=== PATIENT | male | born 1950 | race Caucasian/White ===

== ENCOUNTER 2017-05-17 04:45 | Emergency (ER) | payer MEDICARE, OTHER ==
[~2017-05-17] VITALS: Ht 175.3 cm; Wt 91.6 kg
[~2017-05-17 04:45] MED LIST: ASPI325T PO; DIPH50IN2 IV; EPIN1INJ20 SQ/IV; HYDR-3533 PO; HYDR250P IVP; LANO0.2510 PO; LISI-591 PO; LORT5TAB PO; PROS5TAB2 PO; SOTA80TA PO; ZOLO50TA PO; [UNRECOGNIZED DRUG - CODE] IV
[2017-05-17 04:51] VITALS: BP 180/81; PULSE 83; RESP 18; TEMP 98.1; O2SAT 96
--- NOTE | 2017-05-17 05:18 | PD ---
HPI Chief Complaint: Complaint Time Seen by Provider: 05:11 Travel History International Travel<30 days: No Contact w/Intl Traveler<30days: No Traveled to known affect area: No History of Present Illness HPI The patient is a 67-year-old male with a history of enlarged prostate who complains of inability to urinate and suprapubic discomfort for about 3 hours. He has had a prosthetic obstruction about [address] Singh is his urologist and he plans to see him next week. [facility] Past Medical History Arthritis: Yes (generalized) Atrial Fibrillation: Yes Autoimmune Disease: No Heart Rhythm Problems: Yes (history of a. 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) Hepatitis: No Hiatal Hernia: No Hypertension: Yes Immune Disorder: No Kidney Stones: No Musculoskeletal: Yes Neurologic: No Psychiatric: No Reproductive: No Respiratory: No Renal Failure: No Thyroid Disease: No Past Surgical History Abdominal Surgery: No AICD: No Cardiac Surgery: No Ear Surgery: No Endocrine Surgery: No Eye Surgery: No Genitourinary Surgery: No Gynecologic Surgery: No Joint Replacement: No Oral Surgery: No Pacemaker: No Thoracic Surgery: No Social History Alcohol Use: Yes (occ) Tobacco Use: No Substance Use: No Allergies-Medications (Allergen,Severity, Reaction): Coded Allergies: HMG-CoA Reductase Inhibitors (Verified Adverse Reaction, Severe, Cramping , 05/17/17) severe leg cramps Reported Meds & Prescriptions Reported Meds & Active Scripts Active Reported Sotalol (Sotalol HCl) 80 Mg Tab 80 Mg PO DAILY Digoxin 0.25 Mg Tab 0.25 Mg PO DAILY Sertraline (Sertraline HCl) 50 Mg Tab 50 Mg PO DAILY Lisinopril 20 Mg Tab 20 Mg PO DAILY Finasteride 5 Mg Tab 5 Mg PO DAILY Do not crush. Review of Systems Except as stated in HPI: all other systems reviewed are Neg Physical Exam Narrative GENERAL: The patient is alert, oriented 3 in moderate to severe distress with his suprapubic bladder distention sensation. The vital signs show blood pressure 180/81 but are otherwise normal. SKIN: Focused skin assessment warm/dry. HEAD: Atraumatic. Normocephalic. EYES: Pupils equal and round. No scleral icterus. No injection or drainage. ENT: No nasal bleeding or discharge. Mucous membranes pink and moist. NECK: Trachea midline. No JVD. CARDIOVASCULAR: Regular rate and rhythm. No murmur appreciated. RESPIRATORY: No accessory muscle use. Clear to auscultation. Breath sounds equal bilaterally. GASTROINTESTINAL: Abdomen soft, non-tender, nondistended. Hepatic and splenic margins not palpable. The bladder appears markedly distended. MUSCULOSKELETAL: No obvious deformities. No clubbing. No cyanosis. No edema. NEUROLOGICAL: Awake and alert. No obvious cranial nerve deficits. Motor grossly within normal limits. Normal speech. PSYCHIATRIC: Appropriate mood and affect; insight and judgment normal. Data Data Last Documented VS Vital Signs Date Time Temp Pulse Resp B/P Pulse Ox O2 Delivery O2 Flow Rate FiO2 05/17/17 05:30 78 16 139/67 99 Room Air 05/17/17 04:51 98.1 Orders Urinalysis - C+S If Indicated (05/17/17 05:18) Urinary Catheter Insert/Apply (05/17/17 05:24) Labs Laboratory Tests Test 05/17/17 05:20 Urine Color STRAW Urine Turbidity CLEAR Urine pH 5.5 Urine Specific [place] 1.004 Urine Protein NEG mg/dL Urine Glucose (UA) NEG mg/dL Urine Ketones NEG mg/dL Urine Occult Blood LARGE Urine Nitrite NEG Urine Bilirubin NEG Urine Leukocyte Esterase NEG Urine RBC 4-9 /hpf Urine WBC 0-2 /hpf Urine Squamous Epithelial 0-5 /hpf Cells Urine Bacteria NONE /hpf Microscopic Urinalysis Comment CULT NOT INDICATED MDM Medical Decision Making Medical Screen Exam Complete: Yes Emergency Medical Condition: Yes Medical Record Reviewed: Yes Interpretation(s) The urine shows large occult blood with 4-9 red cells but is otherwise normal and culture is not indicated. The specific gravity 1.004. Differential Diagnosis Prostatic urethral obstruction, bladder diverticulumhighly unlikely Narrative Course The patient has prostatic urethral obstruction. Approximately 1500 cc was recovered after the Brantley was put in. The patient got considerable relief after the Brantley was put in. Diagnosis Primary Impression: Urethral obstruction Additional Impression: Bladder distention Additional Instructions: As you intend to do, follow-up with Dr. bajwa next week, he will remove the catheter. Disposition: DISCHARGE HOME Condition: Stable Ck Umanzor MD May 17, 2017 05:18
[2017-05-17] MEDS ORDERED: SERT-132 PO (05:19)
[2017-05-17] MEDS ORDERED: DIGO0.25 PO (05:19)
[2017-05-17] MEDS ORDERED: SOTA80TA PO (05:19)
[2017-05-17] MEDS ORDERED: LISI-515 PO (05:19)
[2017-05-17] MEDS ORDERED: FINA5TAB2 PO (05:19)
[2017-05-17 05:30] VITALS: BP 139/67; PULSE 78; RESP 16; O2SAT 99
[2017-05-17 05:32] LABS: BLOOD, URINE LARGE (NEG); GLUCOSE,URINE NEG (NEG); KETONE, URINE NEG (NEG); NITRITE,URINE NEG (NEG); PH, URINE 5.5 (5.0-8.5)
[2017-05-17 05:35] LABS: URINE COLOR STRAW (YELLW/STRAW)
[2017-05-17 05:36] LABS: COMMENT (UR) CULT NOT INDICATED; CULTURE IF INDICATED CULT NOT INDICATED; SQUAMOUS EPITHELIAL CELL URINE 0-5 /hpf (0-5); WBC, URINE 0-2 /hpf (0-5)
[2017-05-17 06:14] VITALS: BP 141/72
== END 2017-05-17 06:16 | disposition home or self-care (01) ==
LOC: PHED 04:45
DX: N36.8 Other specified disorders of urethra (principal); N32.89 Other specified disorders of bladder; I10 Essential (primary) hypertension; E11.9 Type 2 diabetes mellitus without complications; H91.93 Unspecified hearing loss, bilateral; Z87.438 Personal history of other diseases of male genital organs; Z87.448 Personal history of other diseases of urinary system; Z87.39 Personal history of other diseases of the musculoskeletal system and connective tissue; Z86.79 Personal history of other diseases of the circulatory system
CPT/HCPCS: 51703; 81001

== ENCOUNTER 2017-07-24 10:24 | Observation (INO) | payer MEDICARE ==
[~2017-07-24] VITALS: Ht 175.3 cm; Wt 93.6 kg
[~2017-07-24 10:24] MED LIST changes: -ASPI325T PO; +DIGO0.25 PO; -DIPH50IN2 IV; -EPIN1INJ20 SQ/IV; +FINA5TAB2 PO; -HYDR-3533 PO; -HYDR250P IVP; -LANO0.2510 PO; +LISI-515 PO; -LISI-591 PO; -LORT5TAB PO; -PROS5TAB2 PO; +SERT-132 PO; -ZOLO50TA PO; -[UNRECOGNIZED DRUG - CODE] IV
[2017-07-24] MEDS ORDERED: ASPI81CH CHEW (11:43)
[2017-07-24] MEDS ORDERED: ePHEDrine/NS 25 MG/5 ML SYR IV ONE (12:00)
[2017-07-24] MEDS ORDERED: ROCURONIUM INJ 50 MG/5 ML SYRINGE IV PUSH ONE (12:00)
[2017-07-24] MEDS ORDERED: INSULIN HUMAN REGULAR 1,000 UNITS/10 ML VIAL SQ PRN (12:00)
[2017-07-24] MEDS ORDERED: PROPOFOL 200 MG/20 ML AMP IV ONE (12:00)
[2017-07-24] MEDS ORDERED: GLYCOPYRROLATE 1 MG/5 ML SYRINGE IV PUSH ONE (12:00)
[2017-07-24] MEDS ORDERED: POVIDONE IODINE 5% (ANTISEPSIS KIT) 4 APPLICATIONS EACH NARE PRN (12:00)
[2017-07-24] MEDS ORDERED: LACTATED RINGER'S 1000 ML IV PRN (12:00)
[2017-07-24] MEDS ORDERED: DEXAMETHASONE SOD PHOS 4 MG/ML VIAL IV ONE (12:00)
[2017-07-24] MEDS ORDERED: ceFAZolin 1 GM ADDVANTAGE VIAL IV ONE (12:00)
[2017-07-24] MEDS ORDERED: MIDAZOLAM HCL 2 MG/2 ML VIAL IV ONE (12:00)
[2017-07-24] MEDS ORDERED: SODIUM CHLORID 0.9% 500 ML IV PRN (12:00)
[2017-07-24] MEDS ORDERED: NEOSTIGMINE 3 MG/3 ML SYR IV ONE (12:00)
[2017-07-24] MEDS ORDERED: LIDOCAINE HCL 1% PF 5 ML AMPULE OTHER ONE (12:00)
[2017-07-24] MEDS ORDERED: METOPROLOL TARTRATE 25 MG TAB PO PRN (12:00)
[2017-07-24] MEDS ORDERED: ONDANSETRON HCL 4 MG/2 ML VIAL IV PUSH ONE (12:00)
[2017-07-24] MEDS ORDERED: PHENYLEPH/NS 1000 MCG/10 ML SYR IV ONE (12:00)
[2017-07-24] MEDS ORDERED: ceFAZolin 2 GM PREMIX 50 ML IV SCH (12:00)
[2017-07-24] MEDS ORDERED: LACTATED RINGER'S 1000 ML INJ 1,000 ML IV ONE (12:00)
[2017-07-24] MEDS ORDERED: CHLORHEXIDINE GLUCONATE 2 % 1 PACK (2 CLOTHS) TOPICAL PRN (12:00)
[2017-07-24 12:10] LABS: PROTHROMBIN TIME - PATIENT 11.2 SEC (9.8-11.6)
[2017-07-24] MEDS ORDERED: ACETAMINOPHEN 1000 MG/100 ML 100 ML IV ONE (12:59)
[2017-07-24] MEDS ORDERED: FAMOTIDINE 20 MG/2 ML VIAL ONE (13:16)
[2017-07-24] MEDS ORDERED: STERILE WATER FOR INJECTION 20 ML VIAL ONE (13:28)
--- NOTE | 2017-07-24 13:57 | EKG ---
Date Performed: 07/24/2017 Time Performed: 11:09:52 PTAGE: 67 years EKG: ATRIAL FIBRILLATION MARKED LEFT AXIS DEVIATION MINIMAL VOLTAGE CRITERIA FOR LVH, CONSIDER N ORMAL VARIANT SEPTAL MYOCARDIAL INFARCTION , OF INDETERMINATE AGE ABNORMAL ECG PREVIOUS TRACING : 11/24/2015 18.12 Since previous tracing, atrial fibrillation has replaced Si nus rhythm . DOCTOR: Khris Patel Interpretating Date/Time 07/24/2017 13:55:54
[2017-07-24] MEDS ORDERED: ceFAZolin INJ 1,000 MG VIAL IV ONE (14:07)
[2017-07-24] MEDS ORDERED: DO NOT ADM ANY ANTICOAGULANT DRUGS PRN (15:40)
[2017-07-24] MEDS ORDERED: *MEPERIDINE 25 MG INJ VIAL PERIprocedural Use ONLY ONE (16:09)
[2017-07-24] MEDS ORDERED: ACETAMINOPHEN/HYDROcodone 325 MG/5 MG TAB PO PRN (17:15)
[2017-07-24 19:30] VITALS: BP 95/81; PULSE 104; RESP 17; TEMP 96.2; O2SAT 98
[2017-07-24] MEDS: DOCUSATE SODIUM 100 MG CAP PO SCH (22:07)
[2017-07-25 00:15] VITALS: BP 152/69; PULSE 109; RESP 17; TEMP 97.9; O2SAT 95
[2017-07-25 04:20] VITALS: BP 93/53; PULSE 96; RESP 16; TEMP 97; O2SAT 99
[2017-07-25 08:00] VITALS: BP 111/70; PULSE 109; RESP 18; TEMP 96.9; O2SAT 98
[2017-07-25] MEDS ORDERED: FINASTERIDE 5 MG TAB PO SCH (09:00)
[2017-07-25] MEDS ORDERED: SOTALOL HCL 80 MG TAB PO SCH (09:00)
[2017-07-25] MEDS ORDERED: DIGOXIN 0.25 MG TAB PO SCH (09:00)
[2017-07-25] MEDS ORDERED: LISINOPRIL 20 MG TAB PO SCH (09:00)
[2017-07-25 10:17] VITALS: O2SAT 94
[2017-07-25] MEDS: DOCUSATE SODIUM 100 MG CAP PO SCH (11:06)
[2017-07-25 12:00] VITALS: BP 106/66; PULSE 99; RESP 18; TEMP 98.3; O2SAT 98
[2017-07-25] MEDS ORDERED: DOCU1CAP39 PO (13:16)
[2017-07-25] MEDS ORDERED: HYDR-3516 PO (13:16)
[2017-07-25] MEDS ORDERED: CIPR-9 PO (13:16)
--- NOTE | 2017-07-28 12:50 | HHI.DS ---
Discharge Summary Admission Date Jul 24, 2017 at 18:31 Discharge Date: Jul 25, 2017 Admitting Diagnosis BPH Procedures Greenlight PVP with Moxy fiber Hospital Course 67 yo male underwent a Greenlight TURP on 07/25/2017 due to BPH. He was admitted overnight for observation due to his cardiac history. His urine cleared up overnight while on CBI. On POD#1, he passed his void trial. He was discharged home. Pt Condition on Discharge: Good Discharge Disposition: Discharge Home Discharge Instructions DIET: Follow Instructions for: As Tolerated, No Restrictions Activities you can perform: See Additionl Instruction Additional Activity Instructio: No heavylifting greater than 15 lbs x 4 weeks No strenuous activity x 3 weeks New Medications: Ciprofloxacin (Cipro) 500 Mg Tab 500 MG PO BID for Infection for 7 Days, #14 TAB 0 Refills Docusate Sodium (Dok) 100 Mg Cap 100 MG PO BID for Constipation for 14 Days, #28 CAP Hydrocodone-Acetaminophen (Hydrocodone-Acetaminophen) 5-325 mg Tab 2 TAB PO Q6H PRN for PAIN SCALE 6 TO 10 for 5 Days, #40 TAB Continued Medications: Aspirin (Aspirin) 81 Mg Chew 81 MG CHEW DAILY, TAB 0 Refills Digoxin (Digoxin) 0.25 Mg Tab 0.25 MG PO DAILY for Regulate Heart Beat, #30 TAB 0 Refills Finasteride (Finasteride) 5 Mg Tab 5 MG PO DAILY for Manage Prostate Problems, #30 TAB 0 Refills Do not crush. Lisinopril (Lisinopril) 20 Mg Tab 20 MG PO DAILY, #30 TAB 0 Refills Sotalol (Sotalol) 80 Mg Tab 80 MG PO DAILY for Regulate Heart Beat, #30 TAB 0 Refills Ashok Turner MD Jul 28, 2017 12:50
--- NOTE | 2017-07-28 13:34 | MP ---
cc: LORRI WHITE MD DATE OF SURGERY 07/24/2017 PREOPERATIVE DIAGNOSIS BPH with lower urinary tract symptoms. POSTOPERATIVE DIAGNOSIS BPH with lower urinary tract symptoms. PROCEDURE PERFORMED 1. Cystoscopy 2. GreenLight PVP with MoXy Fiber. SURGEON MD Yue ANESTHESIA General. COMPLICATIONS None. PREOPERATIVE ANTIBIOTICS Ancef 1 gram IV. DRAINS 22-Comoran three-way Brantley catheter. SPECIMEN None. BLOOD LOSS Minimal. DISPOSITION Stable to Recovery. INDICATIONS The patient is a 67-year-old male with a longstanding history of lower urinary tract symptoms including weak stream, incomplete emptying, nocturia secondary to enlarged prostate, presents today for cystoscopy and photovaporization of his prostate with the GreenLight laser. He has had multiple episodes of undergoing urinary retention. The patient had an office cystoscopy performed which showed an approximately 5-cm long prostate with trilobar hyperplasia. Treatment options were discussed with the patient. He wished to proceed with GreenLight photovaporization of the prostate. After the risks, benefits and alternatives were explained to the patient including the risk of erectile dysfunction, urinary incontinence and retrograde ejaculation, he elected to proceed and informed consent was obtained. DETAILS OF PROCEDURE The patient was properly identified, brought back to the Cystoscopy Suite. He was laid supine on the cystoscopy table. Appropriate time-out was performed under the direction of Anesthesiology. The patient was then induced under general aesthetic. Preop antibiotics in the form of Ancef 1 gram IV was given within 1 hour of the start of the procedure. The patient was then placed in dorsal lithotomy position, prepped and draped in normal sterile surgical fashion. The resectoscope with the visual obturator was carefully passed into the patient's bladder without any difficulty. The bladder was then drained. The working sheath was then inserted. The bladder was carefully inspected. Both ureteral orifices were identified and appeared in the normal anatomic location. There was no evidence of any bladder tumors or stones but it widely, diffusely trabeculated. The resectoscope was then retracted back into the prostatic fossa. I began by taking down the median lobe to the level of the bladder neck. This helped opened up his prostatic channel. I then vaporized the adenoma between the 1 and 5 and 7 and 11 o'clock position on each side all the way back to his verumontanum. He had a significantly long prostate but it did appear to open up his prostate quite significantly. Hemostasis was achieved. At this point his prostate appeared to be adequately opened with most if not all of the adenoma vaporized. The bladder was then drained. A second look was performed. Hemostasis was achieved. A 22-Comoran three-way catheter was then placed with clear yellow return. He was then started on CBI and placed to traction. This concluded the procedure. The patient was extubated and sent to recovery in stable condition. He will be admitted overnight for routine postoperative care. ADDENDUM Due to his cardiac history, the patient will be admitted overnight for observation. MD TONY Morales/STEPHANIE /12:46 PM /1:19 PM
== END 2017-07-25 16:13 | disposition home or self-care (01) ==
LOC: HSDC 10:24 → N06A 18:31
PROVIDERS: ADMIT Urology; ATTEND Urology
DX: N40.1 Benign prostatic hyperplasia with lower urinary tract symptoms (principal); R33.9 Retention of urine, unspecified; R35.1 Nocturia; R39.12 Poor urinary stream; I48.91 Unspecified atrial fibrillation
CPT/HCPCS: 00914; 52648; 85610; 93005; G0378; J0131; J0690; J1100; J2175; J2250; J2370; J2405; J2710; J3010; J7120

== ENCOUNTER 2017-10-07 07:29 | Emergency (ER) | payer MEDICARE ==
[~2017-10-07] VITALS: Ht 175.3 cm; Wt 93.2 kg
[~2017-10-07 07:29] MED LIST changes: +ASPI-516 CHEW; +CIPR-9 PO; +DOCU1CAP39 PO; +HYDR-3516 PO; -SERT-132 PO
[2017-10-07 07:38] VITALS: BP 201/108; PULSE 128; RESP 18; TEMP 97.6; O2SAT 100
--- NOTE | 2017-10-07 08:13 | PD ---
HPI Chief Complaint: Complaint Time Seen by Provider: 07:44 Travel History International Travel<30 days: No Contact w/Intl Traveler<30days: No History of Present Illness HPI 67-year-old male presents with no urination since 1 AM. He denies any other complaints other than pain and pressure from not urinating. He states he's had this issue before knows he has a large prostate. About 8 weeks or so ago he had laser surgery on his prostate with Dr. rea. He states that is his urologist. PFSH Past Medical History Arthritis: Yes Atrial Fibrillation: Yes Autoimmune Disease: No Heart Rhythm Problems: Yes (history of a. fib 2000) Cancer: No Cardiovascular Problems: Yes (A-FIB) High Cholesterol: No Chest Pain: No Congestive Heart Failure: No Diabetes: Yes (BORDERLINE-NOT ON MEDS) Diminished Hearing: Yes (BILATERAL) Endocrine: No Gastrointestinal Disorders: No Genitourinary: Yes (CYST ON RIGHT KIDNEY) Hepatitis: No Hiatal Hernia: No Hypertension: Yes Immune Disorder: No Implanted Vascular Access Dvce: No Kidney Stones: No Musculoskeletal: Yes Neurologic: No Psychiatric: No Reproductive: No Respiratory: No Renal Failure: No Thyroid Disease: No Past Surgical History Abdominal Surgery: No AICD: No Cardiac Surgery: No Ear Surgery: No Endocrine Surgery: No Eye Surgery: Yes (LEFT CATARACT REMOVED) Genitourinary Surgery: Yes (NEEDLE BX OF CYST ON RIGHT KIDNEY & PROSTATE) Gynecologic Surgery: No Joint Replacement: No Neurologic Surgery: No Oral Surgery: No Pacemaker: No Thoracic Surgery: No Other Surgery: Yes (needle biopsy) Social History Alcohol Use: Yes (occ) Tobacco Use: No Substance Use: No Allergies-Medications (Allergen,Severity, Reaction): Coded Allergies: amlodipine (Unverified Adverse Reaction, Severe, Cramping, 10/07/17) severe leg cramps atorvastatin (Unverified Adverse Reaction, Severe, Cramping, 10/07/17) severe leg cramps pravastatin (Unverified Adverse Reaction, Severe, Cramping, 10/07/17) severe leg cramps simvastatin (Unverified Adverse Reaction, Severe, Cramping, 10/07/17) severe leg cramps Reported Meds & Prescriptions Reported Meds & Active Scripts Active Macrobid (Nitrofurantoin Monohydrate Macrocrystals) 100 Mg Capsule 100 Mg PO BID 7 Days Hydrocodone-Acetaminophen 5-325 mg Tab 2 Tab PO Q6H PRN 5 Days Reported Lisinopril 20 Mg Tab 20 Mg PO BID Aspirin 81 Mg Chew 81 Mg CHEW DAILY Sotalol (Sotalol HCl) 80 Mg Tab 80 Mg PO DAILY Digoxin 0.25 Mg Tab 0.25 Mg PO DAILY Review of Systems Except as stated in HPI: all other systems reviewed are Neg Physical Exam Narrative GENERAL: Well-nourished, well-developed patient. 1000 cc of urine noted in catheter bag SKIN: Warm and dry. HEAD: Normocephalic and atraumatic. EYES: No injection or drainage. ENT: No nasal drainage noted. NECK: Supple, trachea midline. CARDIOVASCULAR: Regular rate and rhythm RESPIRATORY: No increased effort. No accessory muscle use. GASTROINTESTINAL: Abdomen soft, non-tender, nondistended after Briscoe placement EXTREMITIES: No edema.y. NEUROLOGICAL: Awake and alert. Moves extremities and sensory grossly within normal limits. Normal speech. Data Data Last Documented VS Vital Signs Date Time Temp Pulse Resp B/P (MAP) Pulse Ox O2 Delivery O2 Flow Rate FiO2 10/07/17 09:40 85 16 136/87 (103) 100 Room Air 10/07/17 07:38 97.6 Orders Orders Urinary Catheter Insert/Apply (10/07/17 07:44) Urinalysis - C+S If Indicated (10/07/17 08:07) Urine Culture (10/07/17 08:00) Ed Discharge Order (10/07/17 08:53) Labs Laboratory Tests Test 10/07/17 08:00 Urine Collection Type CATH Urine Color YELLOW Urine Turbidity SLIGHT Urine pH 7.0 Urine Specific [place] 1.009 Urine Protein 100 mg/dL Urine Glucose (UA) NEG mg/dL Urine Ketones NEG mg/dL Urine Occult Blood LARGE Urine Nitrite POS Urine Bilirubin NEG Urine Leukocyte Esterase LARGE Urine RBC 25-49 /hpf Urine WBC 100-200 /hpf Urine WBC Clumps MOD Urine Bacteria FEW /hpf Microscopic Urinalysis Comment CULTURE INDICATED Urine Collection Time 08:00 [facility] Medical Decision Making Medical Screen Exam Complete: Yes Emergency Medical Condition: Yes Medical Record Reviewed: Yes (past history confirmed) Interpretation(s) ua with uti Differential Diagnosis BPH, UTI, stone Narrative Course Briscoe catheter was placed with large amount of urine output. We'll send urinalysis and reevaluate ua with uti, will discuss with his urologist Patient denies any new complaints and states that they are feeling better. Patient happy with care, all questions answered. Patient knows that follow up is incumbent on them and to return to the emergency room immediately if new or worsening symptoms develop. Patient given strict return precautions, vitals reviewed and are normal after briscoe placement, agrees to further workup as an outpatient. Physician Communication Physician Communication dr rea states to have wait at least 1 week with briscoe for follow up, no preference on antibiotics Diagnosis Primary Impression: Urinary retention Additional Impression: UTI (urinary tract infection) Qualified Codes: N39.0 - Urinary tract infection, site not specified Patient Instructions: General Instructions Additional Instructions: return as needed, follow with dr rea in one week, keep briscoe in place until follow up Med/Other Pt SpecificInfo: Prescription(s) given Scripts Nitrofurantoin Monohydrate Macrocrystals (Macrobid) 100 Mg Capsule 100 MG PO BID for Infection for 7 Days, #14 CAP 0 Refills Prov: Aysha Ramey MD 10/07/17 Disposition: 01 DISCHARGE HOME Condition: Stable Aysha Ramey MD Oct 07, 2017 08:13
[2017-10-07 08:22] LABS: BILIRUBIN, URINE NEG (NEG); BLOOD, URINE LARGE (NEG); GLUCOSE,URINE NEG (NEG); KETONE, URINE NEG (NEG); NITRITE,URINE POS (NEG); URINE LEUKOCYTE ESTERASE LARGE (NEG)
[2017-10-07 08:33] LABS: URINE COLOR YELLOW (YELLW/STRAW); WBC, URINE 100-200 /hpf (0-5); WHITE BLOOD CELL CLUMPS MOD
[2017-10-07 08:34] LABS: BACTERIA, URINE FEW /hpf
[2017-10-07] MEDS ORDERED: MACR100C2 PO (08:53)
[2017-10-07] MEDS ORDERED: LISI-515 PO (09:23)
[2017-10-07 09:40] VITALS: BP 136/87; PULSE 85; RESP 16; O2SAT 100
== END 2017-10-07 10:04 | disposition home or self-care (01) ==
LOC: PHED 07:29
DX: N39.0 Urinary tract infection, site not specified (principal); R33.8 Other retention of urine; R82.99 Other abnormal findings in urine; I10 Essential (primary) hypertension
CPT/HCPCS: 51702; 81001; 87086

== ENCOUNTER 2017-12-06 14:57 | Emergency (ER) | payer OTHER, MEDICARE ==
[~2017-12-06] VITALS: Ht 175.3 cm; Wt 93.0 kg
[~2017-12-06 14:57] MED LIST changes: -CIPR-9 PO; -DOCU1CAP39 PO; -FINA5TAB2 PO; +MACR100C2 PO
[2017-12-06 15:46] VITALS: BP 152/88; PULSE 93; RESP 16; TEMP 98.6; O2SAT 98
[2017-12-06] MEDS ORDERED: FINA5TAB2 PO (16:39)
[2017-12-06 17:34] VITALS: BP 145/85; PULSE 80; RESP 18; O2SAT 96
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
[2017-12-06] MEDS ORDERED: ROBA750T PO (18:34)
[2017-12-06] MEDS ORDERED: IBUP1TAB7 PO (18:34)
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
[2017-12-06] MEDS ORDERED: KETOROLAC TROMETHAMINE 60 MG/2 ML (IM) VIAL IM ONE (18:45)
[2017-12-06] MEDS ORDERED: ORPHENADRINE INJ 60 MG/2 ML AMP IM ONE (18:45)
== END 2017-12-06 18:51 | disposition home or self-care (01) ==
LOC: PHED 14:57 → PHEFT 18:51
DX: S16.1XXA Strain of muscle, fascia and tendon at neck level, initial encounter (principal); G44.209 Tension-type headache, unspecified, not intractable; I48.91 Unspecified atrial fibrillation; M19.90 Unspecified osteoarthritis, unspecified site; E11.9 Type 2 diabetes mellitus without complications; V49.49XA Driver injured in collision with other motor vehicles in traffic accident, initial encounter; Y92.410 Unspecified street and highway as the place of occurrence of the external cause
CPT/HCPCS: 72125; 96372; 99283; J1885; J2360; L0150

== ENCOUNTER 2017-12-26 07:37 | Emergency (ER) | payer MEDICARE, OTHER ==
[~2017-12-26] VITALS: Ht 175.3 cm; Wt 91.3 kg
[~2017-12-26 07:37] MED LIST changes: -ASPI-516 CHEW; +FINA5TAB2 PO; -HYDR-3516 PO; +IBUP1TAB7 PO; -MACR100C2 PO; +ROBA750T PO
[2017-12-26 07:40] VITALS: BP 199/103; PULSE 104; RESP 16; TEMP 97.8; O2SAT 100
[2017-12-26] MEDS ORDERED: TAMS5CAP PO (07:59)
[2017-12-26] MEDS ORDERED: SODIUM CHLOR 0.9% 250 ML INJ 250 ML IV ONE (08:00)
[2017-12-26 08:29] LABS: AUTOMATED NEUTROPHIL # 4.3 TH/MM3 (1.8-7.7); BASOPHIL % 0.4 % (0.0-2.0); BILIRUBIN, URINE NEG (NEG); BLOOD, URINE MOD (NEG); EOSINOPHIL # 0.3 TH/MM3 (0-0.4); EOSINOPHIL % 5.2 % (0.0-4.0); GLUCOSE,URINE NEG (NEG); HEMATOCRIT 47.1 % (39.0-51.0); HEMOGLOBIN 15.4 GM/DL (13.0-17.0); KETONE, URINE NEG (NEG); LYMPH % 19.9 % (9.0-44.0); LYMPHOCYTE # 1.2 TH/MM3 (1.0-4.8); MEAN CELL VOLUME 88.3 FL (80.0-100.0); MEAN CORPUSCULAR HEMOGLOBIN 28.9 PG (27.0-34.0); MEAN CORPUSCULAR HGB CONC 32.8 % (32.0-36.0); MEAN PLATELET VOLUME 8.9 FL (7.0-11.0); MONO % 7.8 % (0.0-8.0); MONOCYTE # 0.5 TH/MM3 (0-0.9); NEUT % 66.7 % (16.0-70.0); NITRITE,URINE NEG (NEG); PH, URINE 5.5 (5.0-8.5); PLATELET COUNT 180 TH/MM3 (150-450); RED BLOOD COUNT 5.34 MIL/MM3 (4.50-5.90); URINE COLOR YELLOW (YELLW/STRAW); URINE LEUKOCYTE ESTERASE SMALL (NEG); WHITE BLOOD COUNT 6.3 TH/MM3 (4.0-11.0)
[2017-12-26 08:50] LABS: CHLORIDE 105 MEQ/L (98-107); SODIUM (NA) 138 MEQ/L (136-145)
[2017-12-26 08:53] LABS: CALCIUM 8.5 MG/DL (8.5-10.1)
[2017-12-26 08:54] LABS: ALBUMIN 3.8 GM/DL (3.4-5.0); BICARBONATE 24.6 MEQ/L (21.0-32.0); BLOOD UREA NITROGEN 10 MG/DL (7-18); GLUCOSE,RANDOM 138 MG/DL (74-106)
[2017-12-26 08:55] LABS: RBC, URINE 15-19 /hpf (0-3); SQUAMOUS EPITHELIAL CELL URINE 0-5 /hpf (0-5); WHITE BLOOD CELL CLUMPS MOD
[2017-12-26 08:57] LABS: ALT (GPT) 16 U/L (12-78); AST (GOT) 19 U/L (15-37); CREATININE 0.69 MG/DL (0.60-1.30); GLOMERULAR FILTRATION RATE 114 ML/MIN (>89)
[2017-12-26 08:59] LABS: TOTAL BILIRUBIN ADULT 0.5 MG/DL (0.2-1.0); TOTAL PROTEIN 7.4 GM/DL (6.4-8.2)
[2017-12-26 09:00] LABS: ALKALINE PHOSPHATASE 90 U/L (45-117)
[2017-12-26 09:02] LABS: TROPONIN I LESS THAN 0.02 NG/ML (0.02-0.05)
--- NOTE | 2017-12-26 09:06 | PD ---
HPI Chief Complaint: Complaint Time Seen by Provider: 07:53 Travel History International Travel<30 days: No Contact w/Intl Traveler<30days: No Traveled to known affect area: No History of Present Illness HPI This is a 67-year-old male who presents the ER complaining of lower abdominal pain. Patient has history of multiple kidney stone, he states that he had a couple stones removed from the urethra about a week ago but reports that now he is unable to urinate as it hurts when he urinates, patient has an appointment with the [facility] in 2 days but he was having unbearable pain when urinating that prompted him to come to the ER. Patient denies any fevers chills or night sweats is no flank pain, no leg swelling. He denies any blood in the urine and states that when he urinates it only dribbles. PFSH Past Medical History Hx Anticoagulant Therapy: Yes (coumadin) Arthritis: Yes Atrial Fibrillation: Yes Autoimmune Disease: No Heart Rhythm Problems: Yes (history of a. fib 2000) Cancer: No Cardiovascular Problems: Yes (htn on meds, a-fib) High Cholesterol: No Chest Pain: No Congestive Heart Failure: No Cerebrovascular Accident: Yes Diabetes: Yes (diet control) Patient Takes Glucophage: No Diminished Hearing: Yes (BILATERAL) Endocrine: No Gastrointestinal Disorders: No Genitourinary: Yes (CYST ON RIGHT KIDNEY) Hepatitis: No Hiatal Hernia: No Hypertension: Yes Immune Disorder: No Implanted Vascular Access Dvce: No Kidney Stones: No Medical other: Yes (AMPUTATED LEFT PINKY FINGER) Musculoskeletal: Yes Neurologic: No Psychiatric: No Reproductive: No Respiratory: No Renal Failure: No Thyroid Disease: No Tetanus Vaccination: < 5 Years Influenza Vaccination: Yes Past Surgical History Abdominal Surgery: No AICD: No Cardiac Surgery: No Ear Surgery: No Endocrine Surgery: No Eye Surgery: Yes (LEFT CATARACT REMOVED) Genitourinary Surgery: Yes (NEEDLE BX OF CYST ON RIGHT KIDNEY & PROSTATE, LASER SURGERY TO PROSTATE) Gynecologic Surgery: No Joint Replacement: No Neurologic Surgery: No Oral Surgery: No Pacemaker: No Thoracic Surgery: No Other Surgery: Yes (needle biopsy) Social History Alcohol Use: Yes ([facility]) Tobacco Use: No (QUIT 1978) Substance Use: No Allergies-Medications (Allergen,Severity, Reaction): Coded Allergies: amlodipine (Unverified Adverse Reaction, Severe, Cramping, 12/26/17) severe leg cramps atorvastatin (Unverified Adverse Reaction, Severe, Cramping, 12/26/17) severe leg cramps pravastatin (Unverified Adverse Reaction, Severe, Cramping, 12/26/17) severe leg cramps simvastatin (Unverified Adverse Reaction, Severe, Cramping, 12/26/17) severe leg cramps Reported Meds & Prescriptions Reported Meds & Active Scripts Active Reported Flomax (Tamsulosin HCl) 0.4 Mg Cap 0.4 Mg PO HS Lisinopril 20 Mg Tab 20 Mg PO BID Sotalol (Sotalol HCl) 80 Mg Tab 80 Mg PO DAILY Digoxin 0.25 Mg Tab 0.25 Mg PO DAILY Review of Systems Except as stated in HPI: all other systems reviewed are Neg Physical Exam Narrative GENERAL: Alert oriented 3 no acute distress. SKIN: Focused skin assessment warm/dry. HEAD: Atraumatic. Normocephalic. EYES: Pupils equal and round. No scleral icterus. No injection or drainage. ENT: No nasal bleeding or discharge. Mucous membranes pink and moist. NECK: Trachea midline. No JVD. CARDIOVASCULAR: Regular rate and rhythm. No murmur appreciated. RESPIRATORY: No accessory muscle use. Clear to auscultation. Breath sounds equal bilaterally. GASTROINTESTINAL: Abdomen soft, non-tender, nondistended. Hepatic and splenic margins not palpable. MUSCULOSKELETAL: No obvious deformities. No clubbing. No cyanosis. No edema. NEUROLOGICAL: Awake and alert. No obvious cranial nerve deficits. Motor grossly within normal limits. Normal speech. PSYCHIATRIC: Appropriate mood and affect; insight and judgment normal. Data Data Last Documented VS Vital Signs Date Time Temp Pulse Resp B/P (MAP) Pulse Ox O2 Delivery O2 Flow Rate FiO2 12/26/17 07:40 97.8 104 16 199/103 (135) 100 Orders Orders Urinalysis - C+S If Indicated (12/26/17 07:59) Comprehensive Metabolic Panel (12/26/17 07:59) Complete Blood Count With Diff (12/26/17 07:59) Ct Abd/Pel W/O Iv Contrast (12/26/17 ) Troponin I (12/26/17 07:59) Sodium Chlor 0.9% 250 Ml Inj (Ns 250 Ml (12/26/17 08:00) Uric Acid (12/26/17 08:01) Urine Culture (12/26/17 08:24) Labs Laboratory Tests Test 12/26/17 08:24 White Blood Count 6.3 TH/MM3 Red Blood Count 5.34 MIL/MM3 Hemoglobin 15.4 GM/DL Hematocrit 47.1 % Mean Corpuscular Volume 88.3 FL Mean Corpuscular Hemoglobin 28.9 PG Mean Corpuscular Hemoglobin Concent 32.8 % Red Cell Distribution Width 15.0 % Platelet Count 180 TH/MM3 Mean Platelet Volume 8.9 FL Neutrophils (%) (Auto) 66.7 % Lymphocytes (%) (Auto) 19.9 % Monocytes (%) (Auto) 7.8 % Eosinophils (%) (Auto) 5.2 % Basophils (%) (Auto) 0.4 % Neutrophils # (Auto) 4.3 TH/MM3 Lymphocytes # (Auto) 1.2 TH/MM3 Monocytes # (Auto) 0.5 TH/MM3 Eosinophils # (Auto) 0.3 TH/MM3 Basophils # (Auto) 0.0 TH/MM3 CBC Comment DIFF FINAL Differential Comment Urine Collection Type CLEAN CATCH Urine Color YELLOW Urine Turbidity CLEAR Urine pH 5.5 Urine Specific [place] 1.010 Urine Protein 30 mg/dL Urine Glucose (UA) NEG mg/dL Urine Ketones NEG mg/dL Urine Occult Blood MOD Urine Nitrite NEG Urine Bilirubin NEG Urine Urobilinogen 0.2 MG/DL Urine Leukocyte Esterase SMALL Urine RBC 15-19 /hpf Urine WBC 20-24 /hpf Urine WBC Clumps MOD Urine Squamous Epithelial Cells 0-5 /hpf Microscopic Urinalysis Comment CULTURE INDICATED Urine Collection Time 08:24 Blood Urea Nitrogen 10 MG/DL Creatinine 0.69 MG/DL Random Glucose 138 MG/DL Total Protein 7.4 GM/DL Albumin 3.8 GM/DL Calcium Level 8.5 MG/DL Alkaline Phosphatase 90 U/L Aspartate Amino Transf (AST/SGOT) 19 U/L Alanine Aminotransferase (ALT/SGPT) 16 U/L Total Bilirubin 0.5 MG/DL Sodium Level 138 MEQ/L Potassium Level 3.9 MEQ/L Chloride Level 105 MEQ/L Carbon Dioxide Level 24.6 MEQ/L Anion Gap 8 MEQ/L Estimat Glomerular Filtration Rate 114 ML/MIN Troponin I LESS THAN 0.02 NG/ML MDM Medical Decision Making Medical Screen Exam Complete: Yes Emergency Medical Condition: Yes Differential Diagnosis Urinary obstruction, enlarged prostate, stones, malignancy. Narrative Course This is a 67-year-old male presents here complaining of difficulty urination. Labs are within normal limits except for blood in the urine, CT shows a lesion in the bladder of unknown etiology. Patient sees Dr. rea, I spoke with Dr. rea [facility] and told him about the mass in the bladder and he states that patient had cystoscopy couple days ago and is believed to be blood clot in the bladder and he recommended to discharge the patient with a Brantley catheter and he will follow-up in 2 days. Patient clinically improved after putting Brantley cath drains only a year will discharge the patient with Brantley and he can follow-up with urology. Last 24 hours Impressions Abdomen/Pelvis CT 12/26/17 0000 Signed Impressions: Service Date/Time: Tuesday, December 26, 2017 08:27 - CONCLUSION: 1. 9.2 x 9.2 x 10.6 cm mass lesion with scattered calcification in the mid pelvis. Bladder is presumably decompressed and the lesion could represent an intrinsic bladder mass or markedly enlarged prostate. For further characterization, we could instill contrast through the patient's Brantley catheter and repeat images through the pelvis if clinically warranted. 2. Stable 3.8 cm mass lesion off the posteromedial aspect of the upper pole the right kidney, biopsy proven angiomyolipoma. 3. Punctate granulomatous type calcification posteriorly in the right base. Lorenzo Mosher MD Diagnosis Primary Impression: Bladder distention Additional Impression: Urethral obstruction Additional Instructions: Follow-up was in 2 days keep the Brantley catheter and return to the ER if any discharge from or around the Brantley or if any fever chills or night sweats or if symptoms change or do not improve. Disposition: 01 DISCHARGE HOME Condition: Stable Sarbjit Ng MD Dec 26, 2017 09:06
--- NOTE | 2017-12-26 09:34 | RADRPT ---
EXAM DATE/TIME: 12/26/2017 08:27 [facility] COMPARISON: CT NEEDLE BIOPSY RENAL, RIGHT, September 12, 2015, 8:36. INDICATIONS : Bilateral lower abdominal pain. Unable to urinate. ORAL CONTRAST: No oral contrast ingested. RADIATION DOSE: 20.35 CTDIvol (mGy) MEDICAL HISTORY : Hypertension. Cerebrovascular disease. Diabetes mellitus type 2.BPH. SURGICAL HISTORY : Prostate reduction laser surgery. ENCOUNTER: Initial ACUITY: 1 day PAIN SCALE: 10/10 LOCATION: Bilateral lower quadrant TECHNIQUE: Volumetric scanning of the abdomen and pelvis was performed. Using automated exposure control and ad justment of the mA and/or kV according to patient size, radiation dose was kept as low as reasonably achievable to obtain optimal diagnostic quality images. DICOM format image data is available electro nically for review and comparison. FINDINGS: LOWER LUNGS: Punctate calcific density posteriorly in the right lung base is characteristic of a benign granuloma. Lung bases are otherwise clear LIVER: Homogeneous density without lesion. There is no dilation of the biliary tree. No calcified gallston es. SPLEEN: Normal size without lesion. PANCREAS: Within normal limits. KIDNEYS: 3.8 cm mass lesion of the posterior medial aspect of upper pole of the right kidney was present previ ously and is basically stable. This was previously biopsied and shown to be a angiomyolipoma. On the most inferior images of the lesion, there does appear to be fat density characteristic of the reporte d diagnosis. ADRENAL GLANDS: Within normal limits. VASCULAR: There is no aortic aneurysm. BOWEL/MESENTERY: The stomach, small bowel, and colon demonstrate no acute abnormality. There is no free intraperitone al air or fluid. ABDOMINAL WALL: Within normal limits. RETROPERITONEUM: There is no lymphadenopathy. BLADDER: Brantley catheter is identified. However, this is situated just anterior and cephalad to a large mass le emir that contains calcification. Lesion measured 9.2 x 9.2 x 10.6 cm. Without contrast, it is diffic ult to determine if this is part of the bladder or possibly a markedly enlarged prostate gland. REPRODUCTIVE: Markedly enlarged prostate versus bladder mass as above. INGUINAL: There is no lymphadenopathy or hernia. MUSCULOSKELETAL: Within normal limits for patient age. CONCLUSION: 1. 9.2 x 9.2 x 10.6 cm mass lesion with scattered calcification in the mid pelvis. Bladder is presuma radha decompressed and the lesion could represent an intrinsic bladder mass or markedly enlarged prosta te. For further characterization, we could instill contrast through the patient's Brantley catheter and repeat images through the pelvis if clinically warranted. 2. Stable 3.8 cm mass lesion off the posteromedial aspect of the upper pole the right kidney, biopsy proven angiomyolipoma. 3. Punctate granulomatous type calcification posteriorly in the right base. Lorenzo Mosher MD on December 26, 2017 at 9:20 Board Certified Radiologist. This report was verified electronically.
[2017-12-26] MEDS ORDERED: CIPR500T2 PO (10:08)
== END 2017-12-26 10:25 | disposition home or self-care (01) ==
LOC: PHED 07:37
DX: N32.89 Other specified disorders of bladder (principal); N36.8 Other specified disorders of urethra; I10 Essential (primary) hypertension; I48.91 Unspecified atrial fibrillation; Z79.01 Long term (current) use of anticoagulants; Z87.442 Personal history of urinary calculi; Z87.891 Personal history of nicotine dependence
CPT/HCPCS: 74176; 80053; 81001; 84484; 84550; 85025; 87086; 96360; 99284; J7050

== ENCOUNTER 2018-01-15 16:05 | Observation (INO) | payer MEDICARE ==
[2018-01-15 16:00] VITALS: BP 116/60; PULSE 67; RESP 17; TEMP 98.1; O2SAT 97
[~2018-01-15 16:05] MED LIST changes: +CIPR500T2 PO; -FINA5TAB2 PO; -IBUP1TAB7 PO; -ROBA750T PO; +TAMS5CAP PO
[2018-01-15 18:05] VITALS: BP 117/57; PULSE 85; RESP 16; TEMP 98; O2SAT 99
[2018-01-15] MEDS: LISINOPRIL 20 MG TAB PO SCH (20:53)
[2018-01-15] MEDS: DOCUSATE SODIUM 100 MG CAP PO SCH (20:53)
[2018-01-15] MEDS: CIPROFLOXACIN 500 MG TAB PO SCH (20:53)
[2018-01-15] MEDS ORDERED: TAMSULOSIN HCL 0.4 MG CAP PO SCH (21:00)
[2018-01-15 23:30] VITALS: BP 100/62; PULSE 99; RESP 16; TEMP 99; O2SAT 95
[2018-01-16 04:00] VITALS: BP 78/43; PULSE 97; RESP 20; TEMP 98.3; O2SAT 97
[2018-01-16 04:15] VITALS: BP 102/59; PULSE 111; RESP 19; TEMP 99.6; O2SAT 97
[2018-01-16 08:12] VITALS: BP 101/53; PULSE 99; RESP 18; TEMP 99.4; O2SAT 97
[2018-01-16 08:43] LABS: HEMATOCRIT 37.8 % (39.0-51.0); HEMOGLOBIN 12.7 GM/DL (13.0-17.0); MEAN CELL VOLUME 88.3 FL (80.0-100.0); MEAN CORPUSCULAR HEMOGLOBIN 29.8 PG (27.0-34.0); MEAN CORPUSCULAR HGB CONC 33.7 % (32.0-36.0); MEAN PLATELET VOLUME 9.4 FL (7.0-11.0); PLATELET COUNT 121 TH/MM3 (150-450); RED BLOOD COUNT 4.28 MIL/MM3 (4.50-5.90); RED CELL DISTRIBUTION WIDTH 15.3 % (11.6-17.2); WHITE BLOOD COUNT 10.3 TH/MM3 (4.0-11.0)
--- NOTE | 2018-01-16 08:58 | HHI.PR ---
Subjective Patient symptoms today catheter removed this morning. Has voided several times. Feels he is emptying his bladder. Denies CP/SOB/Fevers Objective Vital Signs Vital Signs Date Time Temp Pulse Resp B/P (MAP) Pulse Ox O2 Delivery O2 Flow Rate FiO2 01/16/18 08:12 99.4 99 18 101/53 (69) 97 01/16/18 04:15 99.6 111 19 102/59 (73) 97 01/15/18 23:30 99.0 99 16 100/62 (75) 95 01/15/18 18:05 98.0 85 16 117/57 (77) 99 01/15/18 16:00 98.1 67 17 116/60 (78) 97 Intake & Output 01/16/18 01/16/18 07:00 19:00 Output Total 1965 ml Balance -1965 ml Output Urine Total 1965 ml Result Diagram: 01/16/18 0820 Objective Remarks NAD. A/O x 3 abd soft RRR CTAB Medications and IVs Current Medications Medications (Trade) Dose Ordered Sig/Shivam Route Start Time Stop Time Status Last Admin (Cipro) 500 mg BID PO 01/15/18 21:00 01/15/18 20:53 (Lanoxin) 0.25 mg DAILY PO 01/16/18 09:00 (Prinivil) 20 mg BID PO 01/15/18 21:00 01/15/18 20:53 (Betapace) 80 mg DAILY PO 01/16/18 09:00 (Flomax) 0.4 mg HS PO 01/15/18 21:00 01/15/18 20:53 (Colace) 100 mg BID PO 01/15/18 21:00 01/15/18 20:53 (Flu (Quadrivalent) Vaccine Inj) 0.5 ml ONCE ONCE IM 01/16/18 10:00 01/16/18 10:01 Assessment and Plan Assessment and Plan POD#1 s/p TURP -Voiding on own -d/c home. -F/U as scheduled. Ashok Turner MD Jan 16, 2018 08:58
[2018-01-16] MEDS ORDERED: DIGOXIN 0.25 MG TAB PO SCH (09:00)
[2018-01-16] MEDS ORDERED: DOCU1CAP39 PO (09:00)
[2018-01-16] MEDS ORDERED: SOTALOL HCL 80 MG TAB PO SCH (09:00)
--- NOTE | 2018-01-16 09:03 | HHI.DS ---
Discharge Summary Admission Date Jan 15, 2018 at 16:21 Discharge Date: Jan 16, 2018 Admitting Diagnosis Hematuria CBC/BMP: 01/16/18 0820 Significant Findings Laboratory Tests Test 01/16/18 08:20 Red Blood Count 4.28 MIL/MM3 (4.50-5.90) Hemoglobin 12.7 GM/DL (13.0-17.0) Hematocrit 37.8 % (39.0-51.0) Platelet Count 121 TH/MM3 (150-450) Hospital Course 67 yo [facility] Had significant bleeding following procedure which did not clear up with CBI. Patient was admitted for observation. Overnight, his urine cleared up. Catheter was removed this morning and he has voided on his own without difficulty. Pt Condition on Discharge: Good Discharge Disposition: Discharge Home Discharge Instructions DIET: Follow Instructions for: Heart Healthy Diet Activities you can perform: Full Weight Bearing, Shower/Bath Activities to avoid: Strenuous Activity Additional Activity Instructio: No hevay lifting greater than 15 lbs x 3 weeks New Medications: Docusate Sodium (Dok) 100 Mg Cap 100 MG PO BID PRN for CONSTIPATION for 14 Days, #28 CAP Continued Medications: Ciprofloxacin (Ciprofloxacin) 500 Mg Tab 500 MG PO BID for Infection for 5 Days, #10 TAB 0 Refills Digoxin (Digoxin) 0.25 Mg Tab 0.25 MG PO DAILY for Regulate Heart Beat, #30 TAB 0 Refills Lisinopril (Lisinopril) 20 Mg Tab 20 MG PO BID, #30 TAB 0 Refills Sotalol (Sotalol) 80 Mg Tab 80 MG PO DAILY for Regulate Heart Beat, #30 TAB 0 Refills Tamsulosin (Flomax) 0.4 Mg Cap 0.4 MG PO HS for Manage Prostate Problems, #30 CAP 0 Refills Ashok Turner MD Jan 16, 2018 09:03
[2018-01-16] MEDS: CIPROFLOXACIN 500 MG TAB PO SCH (09:04)
[2018-01-16] MEDS: LISINOPRIL 20 MG TAB PO SCH (09:04)
[2018-01-16] MEDS: DOCUSATE SODIUM 100 MG CAP PO SCH (09:04)
[2018-01-16 09:14] LABS: CALCIUM 8.6 MG/DL (8.5-10.1); CREATININE 0.88 MG/DL (0.60-1.30)
[2018-01-16] MEDS ORDERED: INFLUENZA VIRUS VACCINE (QUADRIVALENT) 0.5 ML SYR IM ONE (10:00)
== END 2018-01-16 11:23 | disposition home or self-care (01) ==
LOC: N06A 16:21
PROVIDERS: ADMIT Urology; ATTEND Urology
DX: N40.1 Benign prostatic hyperplasia with lower urinary tract symptoms (principal); R31.9 Hematuria, unspecified
CPT/HCPCS: 80048; 85027; G0378